=== PATIENT | male | born 1975 | race Caucasian/White ===

== ENCOUNTER 2020-01-17 21:37 | Emergency (ER) | payer BC ==
[~2020-01-17] VITALS: Ht 177.8 cm; Wt 116.1 kg
[2020-01-17 21:43] VITALS: Ht 177.8 cm; Wt 116.1 kg
[2020-01-17 22:42] VITALS: BP 111/76
== END 2020-01-17 22:30 | disposition home or self-care (01) ==
LOC: ED 21:37
DX: R03.0 Elevated blood-pressure reading, without diagnosis of hypertension (principal); I48.91 Unspecified atrial fibrillation; Z13.9 Encounter for screening, unspecified